=== PATIENT | male | born 1995 | race Caucasian/White ===

== ENCOUNTER 2018-05-04 18:56 | Emergency (ER) | payer OTHER ==
[2018-05-04 20:31] VITALS: BP 115/68
--- NOTE | 2018-05-04 21:12 | ED ---
ED Suture/Wound Check - HPI Summary HPI Summary: 22 year old male presents for wound check and staple removal for laceration to his left calf that occurred on 04/22/2018. States lacerated leg on a metal fence while trying jump over. Was seen in [facility] ED and had the wound repaired with 6 barbara. Completed 7 day course of Keflex. Denies fever, chills, pain, redness, swelling, or discharge. - History Of Current Complaint Chief Complaint: UCLaceration Stated Complaint: SUTURE REMOVAL Time Seen by Provider: 05/04/18 20:50 Hx Obtained From: Patient Pain Intensity: 0 - Allergies/Home Medications Allergies/Adverse Reactions: Allergies Allergy/AdvReac Type Severity Reaction Status Date / Time No Known Allergies Allergy Verified 05/04/18 20:28 Home Medications: Home Medications NK [No Home Medications Reported] 05/04/18 [History Confirmed 05/04/18] PMH/Surg Hx/FS Hx/Imm Hx Previously Healthy: Yes - Denies significant PMH - Surgical History Hx Anesthesia Reactions: No - Immunization History Immunizations Up to Date: Yes Infectious Disease History: No Infectious Disease History: Denies: Traveled Outside the [place] in Last 30 Days - Family History Family History: Noncontributory - Social History Occupation: Employed Full-time Lives: Alone Alcohol Use: Occasionally Substance Use Type: Reports: None Smoking Status (MU): Never Smoked Tobacco Review of Systems Constitutional: Negative Musculoskeletal: Negative Skin: Other - See HPI Neurological: Negative All Other Systems Reviewed And Are Negative: Yes Physical Exam Triage Information Reviewed: Yes Vital Signs On Initial Exam: Initial Vitals Temp Pulse Resp BP Pulse Ox 97.2 F 59 14 115/68 100 05/04/18 20:22 05/04/18 20:22 05/04/18 20:22 05/04/18 20:22 05/04/18 20:22 Vital Signs Reviewed: Yes Appearance: Positive: Well-Appearing, No Pain Distress, Well-Nourished Skin: Positive: Warm, Skin Color Reflects Adequate Perfusion, Dry, Other - 4.5 linear laceration approximated with 6 barbara. There is a 1 cm area of dehiscence about mid incision with some eschar. No erythema, edema, induration, or fluctuance noted. Respiratory/Lung Sounds: Positive: Clear to Auscultation, Breath Sounds Present Cardiovascular: Positive: RRR, Pulses are Symmetrical in both Upper and Lower Extremities Musculoskeletal: Positive: Normal Neurological: Positive: Normal Diagnostics - Vital Signs Vital Signs Temp Pulse Resp BP Pulse Ox 05/04/18 20:22 97.2 F 59 14 115/68 100 - Laboratory Lab Statement: Any lab studies that have been ordered have been reviewed, and results considered in the medical decision making process. Course/Dx - Course Course Of Treatment: 22 year old male presents for staple removal. He lacerated his posterior left calf on 04/22/2018 while trying to jump a metal fence. Laceration was repaired at [facility] ED. He completed a 7 day course of antibiotics. The wound appeared well healed without evidence of infection except for a smal area of dehisence that contained some eschar. This area was superficial and should heal well by secondary intention. Barbara were removed without complication. Patient was instructed on continued wound care and warning symptoms requiring immediate evaluation were reviewed. Patient verbalized undertanding and agrees with POC. - Differential Diagnoses Differential Diagnoses: Suture Removal - Clinical Impression Provider Diagnoses: Healing laceration Discharge - Sign-Out/Discharge Documenting (check all that apply): Patient Departure All imaging exams completed and their final reports reviewed: No Studies - Discharge Plan Condition: Stable Disposition: HOME Patient Education Materials: Acute Wounds (ED) Referrals: No Primary Care Phys,NOPCP [Primary Care Provider] - Additional Instructions: Your laceration is healing well. There is a small area where the edges of the wound did not come together well and will take a while longer to heal as it closes from the inside of the wound out. There is no sign of infection. Clean the wound gently with soap and water at least once daily. Apply an antibiotic ointment such as bacitracin and cover with a non-stick bandage. Change the dressing daily or anytime it becomes wet or soiled. Seek immediate medical attention if you develop any signs of infection including fever greater than 100.5 F, increased pain that is not managed with over the counter pain medication, redness that spreads, swelling, red streaks up the leg, or any pus draining from the wound. - Billing Disposition and Condition Condition: STABLE Disposition: Home
== END 2018-05-04 21:15 | disposition home or self-care (01) ==
LOC: UCCORT 18:56
DX: S81.812D Laceration without foreign body, left lower leg, subsequent encounter (principal); W26.8XXD Contact with other sharp object(s), not elsewhere classified, subsequent encounter; Y92.9 Unspecified place or not applicable
CPT/HCPCS: 99202; G0463